=== PATIENT | female | born 1995 | race African-American/Black ===

== ENCOUNTER 2018-01-06 07:04 | Emergency (ER) | payer BC, OTHER ==
[~2018-01-06] VITALS: Ht 167.6 cm; Wt 75.0 kg
[2018-01-06] MEDS ORDERED: HYDROCODONE/ACETAMINOPHEN 5/325MG TABLET PO ONE (08:00)
[2018-01-06 08:02] VITALS: BP 106/68
== END 2018-01-06 10:44 | disposition home or self-care (01) ==
LOC: ER 07:59
DX: M25.521 Pain in right elbow (principal); M25.531 Pain in right wrist; M79.641 Pain in right hand; R55 Syncope and collapse; K21.9 Gastro-esophageal reflux disease without esophagitis; J45.909 Unspecified asthma, uncomplicated; F12.10 Cannabis abuse, uncomplicated; V89.2XXA Person injured in unspecified motor-vehicle accident, traffic, initial encounter; Y93.89 Activity, other specified; Y92.89 Other specified places as the place of occurrence of the external cause; Y99.8 Other external cause status
CPT/HCPCS: 70450; 73080; 73110; 73130; 81025; 99284

== ENCOUNTER 2018-01-12 13:29 | Emergency (ER) | payer BC, MEDICAID ==
[~2018-01-12] VITALS: Ht 165.1 cm; Wt 75.0 kg
[2018-01-12] MEDS ORDERED: HYDROCODONE/ACETAMINOPHEN 5/325MG TABLET PO ONE (16:45)
[2018-01-12 16:51] VITALS: BP 107/53
== END 2018-01-12 18:35 | disposition home or self-care (01) ==
LOC: ER 14:44
DX: S62.666A Nondisplaced fracture of distal phalanx of right little finger, initial encounter for closed fracture (principal); V48.4XXA Person boarding or alighting a car injured in noncollision transport accident, initial encounter; Y93.89 Activity, other specified; Y92.89 Other specified places as the place of occurrence of the external cause
CPT/HCPCS: 29130; 73140; 81025; 99284

== ENCOUNTER 2019-04-22 19:36 | Emergency (ER) | payer BC, MEDICAID ==
[~2019-04-22] VITALS: Ht 165.1 cm; Wt 93.0 kg
[2019-04-22] MEDS ORDERED: ACETAMINOPHEN WITH CODEINE 300/30MG TABLET PO ONE (20:45)
[2019-04-22 21:47] VITALS: BP 132/81
== END 2019-04-22 21:45 | disposition home or self-care (01) ==
LOC: ER 19:36
DX: M79.641 Pain in right hand (principal); M25.531 Pain in right wrist; J45.909 Unspecified asthma, uncomplicated
CPT/HCPCS: 73110; 73130; 81025; 99283